=== PATIENT | female | born 1995 | race Caucasian/White ===

== ENCOUNTER 2020-05-11 23:07 | Outpatient (CLI) | payer SELFPAY ==
[~2020-05-11] VITALS: Ht 165.1 cm; Wt 66.4 kg
[2020-05-11] MEDS ORDERED: PREN1TAB79 PO (23:21)
[2020-05-11 23:44] VITALS: BP 119/70
[2020-05-12 00:03] LABS: AMPHETAMINE SCREEN, URINE Negative (Negative); BARBITURATE SCREEN, URINE Negative (Negative); BENZODIAZEPINE SCREEN, URINE Negative (Negative); CANNABINOID SCREEN, URINE Negative (Negative); COCAINE SCREEN, URINE Negative (Negative); METHADONE SCREEN, URINE Negative (Negative); OPIATE SCREEN, URINE Negative (Negative)
[2020-05-12 00:49] LABS: MICROSCOPIC INDICATED
[2020-05-12] MEDS ORDERED: NITR100C56 PO ×2 (01:02→01:06)
[2020-05-12] MEDS ORDERED: NITROFURANTOIN (MACROBID) 100 MG CAPSULE ONE (01:11)
[2020-05-12] MEDS ORDERED: NITROFURANTOIN (MACROBID) 100 MG CAPSULE PO ONE (01:15)
== END 2020-05-12 01:24 | disposition home or self-care (01) ==
LOC: LDOP 23:07
PROVIDERS: ATTEND Obstetrics & Gynecology
DX: O26.892 Other specified pregnancy related conditions, second trimester (principal); M54.9 Dorsalgia, unspecified; Z3A.22 22 weeks gestation of pregnancy
CPT/HCPCS: 36415; 80307; 81001; 86592; 86762; 86803; 86850; 86900; 87077; 87086; 87340; 87806; 99211; G0463; G0475

== ENCOUNTER 2020-05-13 05:10 | Emergency (ER) | payer OTHER ==
[~2020-05-13] VITALS: Ht 165.1 cm; Wt 75.0 kg
[~2020-05-13 05:10] MED LIST: NITR100C56 PO; PREN1TAB79 PO
[2020-05-13] MEDS ORDERED: ACETAMINOPHEN 325 MG TABLET PO ONE (05:30)
[2020-05-13 05:55] LABS: BASOPHILS % (AUTO) 0 % (0-1); EOSINOPHILS % (AUTO) 0 % (1-7); LYMPHOCYTES % (AUTO) 5 % (22-44); MEAN CORPUSCULAR HGB CONC 35.5 g/dL (32.4-35.8); MEAN PLATELET VOLUME 6.9 fL (7.4-10.4); MONOCYTES % (AUTO) 5 % (2-9); NEUTROPHILS % (AUTO) 89 % (42-75); PLATELET COUNT 214 x10^3/uL (130-400); RED BLOOD COUNT 4.11 x10^6/uL (3.82-5.3); RED CELL DISTRIBUTION WIDTH 13.1 % (9.6-15.2)
[2020-05-13] MEDS ORDERED: SODIUM CHLORIDE FLUSH 10ML SYR IVF ONE (06:00)
[2020-05-13] MEDS ORDERED: SODIUM CHLORIDE 0.9% 1,000ML IVBOLUS ONE (06:00)
--- NOTE | 2020-05-13 06:00 | NUR ---
patient in NAD. call pulido in reach. safety maintained. at bedside.
[2020-05-13 06:02] LABS: ALBUMIN 2.9 g/dL (3.4-5.0); ANION GAP 8 mmol/L (5-15); CALCIUM 8.7 mg/dL (8.5-10.1); CHLORIDE 102 mmol/L (98-107)
[2020-05-13 06:08] LABS: ALANINE AMINOTRANSFERASE 20 U/L (12-78); ALKALINE PHOSPHATASE 72 U/L (45-117); BILIRUBIN,TOTAL 0.6 mg/dL (0.2-1.0); TOTAL PROTEIN 6.7 g/dL (6.4-8.2)
[2020-05-13] MEDS ORDERED: CEFTRIAXONE PMX 1GM/50ML 50 ML IV ONE (06:30)
[2020-05-13] MEDS ORDERED: CEFTRIAXONE PMX 1GM/50ML 50 ML ONE (06:37)
[2020-05-13] MEDS ORDERED: ACETAMINOPHEN 325 MG TABLET ONE (06:37)
[2020-05-13 06:44] LABS: MD SCAN
--- NOTE | 2020-05-13 06:50 | NUR ---
report given to Kamlesh SEGURA
--- NOTE | 2020-05-13 06:56 | NUR ---
Report received from LEE RN, assumed care of PT.
[2020-05-13 06:57] LABS: MICROSCOPIC NOT IND
--- NOTE | 2020-05-13 07:37 | NUR ---
Pt states pain improved, 07/20. DC after fluids/ABX. VS updated.
--- NOTE | 2020-05-13 08:10 | NUR ---
Pt states pain improved. Fluids, ABX complete. VS updated. DC'd
[2020-05-13 08:11] VITALS: BP 105/59
== END 2020-05-13 08:13 | disposition home or self-care (01) ==
LOC: ED 06:29
DX: O23.42 Unspecified infection of urinary tract in pregnancy, second trimester (principal); M54.5 Low back pain; Z3A.22 22 weeks gestation of pregnancy
CPT/HCPCS: 36415; 80053; 81003; 83605; 85025; 87040; 96365; 99284; J0696; J7030

== ENCOUNTER 2020-08-31 02:48 | Outpatient (CLI) | payer OTHER ==
[~2020-08-31] VITALS: Ht 165.1 cm; Wt 87.7 kg
[2020-08-31 03:16] VITALS: BP 132/83
== END 2020-08-31 04:32 | disposition home or self-care (01) ==
LOC: LDOP 02:48
PROVIDERS: ATTEND Obstetrics & Gynecology
DX: O26.893 Other specified pregnancy related conditions, third trimester (principal); R10.2 Pelvic and perineal pain; Z3A.38 38 weeks gestation of pregnancy
CPT/HCPCS: 59025